=== PATIENT | female | born 1945 | race Caucasian/White ===

== ENCOUNTER → 2019-02-27 | Day surgery (SDC) | payer MEDICARE ==
[~2019-02-27] MED LIST: FENTANYL CITRATE/PF 100MCG/2 ML INJ ONE; HAIR, SKIN & N1 EACH PO; LEVOTHYROXINE75 MCG PO; MELATONIN10 M1 PO; MIDAZOLAM HCL 2 MG/2 ML VIAL ONE; OR PHACO EYE KIT ONE; PREMARIN1.25 MG PO; PREOP PHACO EYE KIT ONE; PRESERVISION A1 EACH PO
--- OUTSIDE RECORDS SUMMARY | 2019-02-27 07:34 | XMS REPORT | Summary of Care ---
Author Author [facility] Outpatient Imaging [facility] Outpatient [facility] [place] Address Unknown Phone Unavailable Encounter HQ Encntr_alias(FIN) [id number] Date(s): 01/16/16 - 01/16/16 [facility] Outpatient Imaging [address] [address]- [phone] Discharge Disposition: Home Attending Physician: Evelia Fernández MD Vital Signs No data available for this section Problem List No data available for this section Allergies, Adverse Reactions, Alerts No data available for this section Medications No data available for this section Results No data available for this section Immunizations No data available for this section Procedures No data available for this section Social History No data available for this section Assessment and Plan No data available for this section
--- OUTSIDE RECORDS SUMMARY | 2019-02-27 07:34 | XMS REPORT | Continuity of Care Document ---
Author Author Nehal salazar [facility] Address Unknown Phone Unavailable Problems Problem Status Onset Date Classification Date Reported Comments Source M25.511 - PAIN IN RIGHT SHOULDER Active 01/08/2016 [facility] [place] Medications Medication Details Route Status Patient Instructions Ordering Provider Order Date Source Allergies, Adverse Reactions, Alerts Substance Category Reaction Severity Reaction type Status Date Reported Comments Source Immunizations Immunization Date Given Site Status Last Updated Comments Source Results Order Name Results Value Reference Range Date Interpretation Comments Source Carotid artery Doppler bilat US Carotid artery Doppler bilat US PROCEDURE: CAROTID ULTRASOUND CLINICAL INDICATION: I65.23, R55. COMPARISON: None. TECHNIQUE: Epps-scale, color Doppler and spectral Doppler of the cervical carotid arteries was performed. Static images are submitted. Any reported ICA stenoses indirectly reference the distal internal carotid artery diameter as the denominator for the stenosis measurement, utilizing consensus panel criteria. FINDINGS: RIGHT: There is no demonstrable plaque. ICA PSV: 108 cm/s. CCA PSV: 100 cm/s. ICA/CCA ratio: 1.08. Vertebral flow is antegrade. External carotid artery is patent. LEFT: There is mild to moderate calcific plaque in the proximal left internal carotid artery. ICA PSV: 97.6 cm/s. CCA PSV: 96.2 cm/s. ICA/CCA ratio: 1.01. Vertebral flow is antegrade. External carotid artery is patent. IMPRESSION: 1. Left internal carotid artery calcific plaque. 2. There is no sonographic evidence for a hemodynamically significant stenosis of the cervical carotid arteries. 3. Bilateral vertebral flow is antegrade. Consensus panel Doppler US criteria for diagnosis of ICA stenosis: Stenosis (%) ICA PSV (cm/sec) ICA/CCA ratio <50 <125 <2.0 50-69 125-230 2.0-4.0 >70 but less than >230 >4.0 near occlusion Near occlusion High, low, or Variable undetectable SL: 16 09/14/2017 - - Read by: Delon Rogel MD Dictated Date/time: 09/14/17 12:03 Electronically Signed by: Delon Rogel MD 09/14/17 12:11 FINAL REPORT [facility] [place] Chest wo contrast CT Chest wo contrast CT CT CHEST WITHOUT CONTRAST INDICATION: Right clavicular mass COMPARISON: Right clavicle radiograph 01/08/2016 DISCUSSION: There is no consolidation, pleural effusion, or pneumothorax. The trachea and major bronchi are clear. No pulmonary nodules are identified. The heart and aorta are grossly unremarkable. No suspicious lymphadenopathy is identified. Grossly, no lymphadenopathy or other soft tissue masses are seen in the regions of the supraclavicular fossae. Limited evaluation of the upper abdominal structures is grossly unremarkable. BONES: There is a chronic compression fracture deformity of the L1 vertebral body. No acute bony abnormalities are visualized. 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 Otherwise, no abnormalities of the right clavicle are identified. IMPRESSION: No acute intrathoracic abnormalities are visualized. No masses of the right clavicle or supraclavicular fossa are identified. SL:16 01/16/2016 - - Read by: Satnam John MD Dictated Date/time: 01/16/16 15:04 Electronically Signed by: Satnam John MD 01/16/16 15:12 FINAL REPORT BRIGETTE Fry Clavicle DX Clavicle DX RIGHT CLAVICLE RADIOGRAPH 2 VIEW CLINICAL INDICATION: Right clavicular pain, lump COMPARISON: None DISCUSSION: A marker was placed in the region of interest, as indicated by the patient. The marker overlies the medial aspect of the right clavicle, near the sternoclavicular joint. No obvious osseous mass is visible. No acute fractures or dislocations are seen. The acromioclavicular joint space is maintained. The glenohumeral joint is grossly unremarkable. IMPRESSION: No abnormalities are seen in the region of interest. If clinically indicated, consider further evaluation with chest CT. SL:16 01/08/2016 - - Read by: Satnam John MD Dictated Date/time: 01/08/16 17:40 Electronically Signed by: Satnam John MD 01/08/16 17:42 FINAL REPORT BR[facility]ETTE Fry Vital Signs Vital Sign Value Date Comments Source Encounters Location Location Details Encounter Type Encounter Number Reason For Visit Attending Provider ADM Date DC Date Status Source [facility] Outpatient Imaging [facility] [id number] Evelia Fernández 01/08/2016 [facility]09[facility] [id number] Evelia Fernández 01/16/2016 01/17/2016 OPIAdriel Fry [facility] Outpatient Imaging [facility] [id number] Evelia Fernández 09/14/2017 09/15/2017 BRIGETTE Fry Procedures Procedure Code Date Perfomer Comments Source
--- OUTSIDE RECORDS SUMMARY | 2019-02-27 07:34 | XMS REPORT | Summary of Care ---
Author Author [facility] Outpatient Imaging [facility] Outpatient Imaging [place] Address Unknown Phone Unavailable Encounter HQ Encntr_abraham(FIN) [id number] Date(s): 01/08/16 - 01/08/16 [facility] Outpatient Imaging [address] [address]- [phone] Discharge Disposition: Home Attending Physician: Evelia Fernández [...]
[2019-02-27 12:05] VITALS: BP 124/74
== END | disposition home or self-care (01) ==
LOC: OR 07:32
PROVIDERS: ATTEND Ophthalmology
DX: H25.11 Age-related nuclear cataract, right eye (principal); M19.90 Unspecified osteoarthritis, unspecified site; E03.9 Hypothyroidism, unspecified; Z88.6 Allergy status to analgesic agent; Z87.891 Personal history of nicotine dependence
CPT/HCPCS: 66984; 93005; J2250; V2788

== ENCOUNTER → 2019-03-13 | Day surgery (SDC) | payer MEDICARE ==
[~2019-03-13] MED LIST changes: +BALANCED SALT SOLN (OPTH) 15 ML BTL IO ONE
--- OUTSIDE RECORDS SUMMARY | 2019-03-13 09:34 | XMS REPORT | Continuity of Care Document ---
Author Author [facility] Organization [facility] Address Unknown Phone Unavailable Care Team Providers Care College Administrator Name Role Phone [facility] Unavailable Unavailable Problems Problem Status Onset Date Classification Date Reported Comments Source M25.511 - PAIN IN RIGHT SHOULDER Active 01/08/2016 [facility] [place] Medications No Data Provided for This Section Allergies, Adverse Reactions, Alerts No Known Medication Allergies Immunizations No Data Provided for This Section Results No Data Provided for This Section Pathology Reports No Data Provided for This Section Diagnostic Reports Report Value Date Source Carotid artery Doppler bilat US PROCEDURE: CAROTID [...] low, or Variable undetectable SL: 16 09/14/2017 BRIGETTE Fry Chest wo contrast CT CT CHEST WITHOUT [...] or supraclavicular fossa are identified. SL:16 01/16/2016 BRIGETTE Fry Clavicle DX RIGHT CLAVICLE RADIOGRAPH 2 VIEW [...] further evaluation with chest CT. SL:16 01/08/2016 BRIG[facility] Fry Consultation Notes No Data Provided for This Section Discharge Summaries No Data Provided for This Section History and Physicals No Data Provided for This Section Vital Signs No Data Provided for This Section Encounters Location Location Details Encounter Type Encounter Number Reason For Visit Attending Provider ADM Date DC Date Status Source [facility] Outpatient Imaging [facility] [employer] [id number] Evelia Fernández 01/08/2016 [facility] [place] [facility] [id number] Evelia Fernández 01/16/2016 01/17/2016 [facility] [place] [facility] Outpatient Imaging [place] [facility] [id number] Evelia Fernández 09/14/2017 09/15/2017 [facility] [place] Procedures No Data Provided for This Section Assessment and Plan No Data Provided for This Section Plan of Care No Data Provided for This Section Social History Social History Date Source No data available for this section 09/15/2017 [facility] [place] Family History No Data Provided for This Section Advance Directives No Data Provided for This Section Functional Status No Data Provided for This Section
[2019-03-13 13:00] VITALS: BP 128/67
== END | disposition home or self-care (01) ==
LOC: OR 09:32
PROVIDERS: ATTEND Ophthalmology
DX: H25.12 Age-related nuclear cataract, left eye (principal); E03.9 Hypothyroidism, unspecified; F41.9 Anxiety disorder, unspecified; Z88.6 Allergy status to analgesic agent; Z87.891 Personal history of nicotine dependence
CPT/HCPCS: 66984; J2250; J3010; V2788